=== PATIENT | female | born 1965 | race Caucasian/White ===

== ENCOUNTER → 2021-06-30 | Outpatient (CLI) | payer OTHER ==
[2021-06-30 14:17] LABS: HEMOGLOBIN 14.8 gm/dl (12.3-15.3); RED BLOOD COUNT 4.82 M/UL (4.00-5.10); WHITE BLOOD COUNT 6.9 K/UL (4.5-11.0)
[2021-06-30 14:46] LABS: BUN/CREATININE RATIO 13 (0-10)
== END ==
LOC: LAB 13:06
PROVIDERS: Orthopaedic Surgery
DX: Z01.812 Encounter for preprocedural laboratory examination (principal); M75.01 Adhesive capsulitis of right shoulder; M75.101 Unspecified rotator cuff tear or rupture of right shoulder, not specified as traumatic; I10 Essential (primary) hypertension
CPT/HCPCS: 36415; 80048; 85027

== ENCOUNTER 2021-07-03 14:32 | Emergency (ER) | payer OTHER ==
[2021-07-03 19:32] LABS: HEMOGLOBIN 14.2 gm/dl (12.3-15.3); RED BLOOD COUNT 4.89 M/UL (4.00-5.10); WHITE BLOOD COUNT 10.4 K/UL (4.5-11.0)
[2021-07-03 19:47] LABS: BUN/CREATININE RATIO 29 (0-10)
[2021-07-03] MEDS ORDERED: CEFUROXIME500 MG PO (22:50)
[2021-07-03] MEDS ORDERED: PYRIDIUM200 MG PO (22:50)
[2021-07-03] MEDS ORDERED: ONDANSETRON ODT4 MG SL (22:50)
== END 2021-07-03 23:35 | disposition home or self-care (01) ==
LOC: ER1 14:32
PROVIDERS: Physician Assistant
DX: N39.0 Urinary tract infection, site not specified (principal); R07.81 Pleurodynia; E11.9 Type 2 diabetes mellitus without complications; I10 Essential (primary) hypertension; Z90.49 Acquired absence of other specified parts of digestive tract
CPT/HCPCS: 71046; 80053; 81001; 83690; 85025; 90715; 96372; 96374; 96375; 99284; J1885; J2270; J2405; Q9967

== ENCOUNTER 2022-03-25 11:14 | Observation (INO) | payer OTHER ==
[~2022-03-25] VITALS: Ht 167.6 cm; Wt 108.9 kg
[~2022-03-25 11:14] MED LIST: CEFUROXIME500 MG PO; ONDANSETRON ODT4 MG SL; PYRIDIUM200 MG PO
[2022-03-25 12:51] LABS: HEMOGLOBIN 15.6 gm/dl (12.3-15.3); RED BLOOD COUNT 5.19 M/UL (4.00-5.10); WHITE BLOOD COUNT 8.7 K/UL (4.5-11.0)
[2022-03-25 13:37] LABS: BUN/CREATININE RATIO 24 (0-10)
[2022-03-25] MEDS ORDERED: LISINOPRIL40 MG PO (17:11)
[2022-03-25] MEDS ORDERED: TRAMADOL HCL50 MG PO (17:12)
[2022-03-25] MEDS ORDERED: NP THYROID60 MG PO (17:12)
[2022-03-25] MEDS ORDERED: JARDIANCE25 MG PO (17:12)
[2022-03-25] MEDS ORDERED: PROGESTERONE200 MG PO (17:12)
[2022-03-25] MEDS ORDERED: NEXLIZET 180-11 EACH PO (17:13)
[2022-03-25] MEDS ORDERED: VITAMIN D3125 MCG/0. PO (17:13)
[2022-03-25] MEDS ORDERED: PRILOSEC OTC20 MG PO (17:14)
[2022-03-25] MEDS ORDERED: CLARITIN10 MG PO (17:14)
[2022-03-26 02:37] LABS: HEMOGLOBIN 13.9 gm/dl (12.3-15.3); WHITE BLOOD COUNT 7.7 K/UL (4.5-11.0)
[2022-03-26 03:02] LABS: BUN/CREATININE RATIO 19 (0-10)
[2022-03-26 03:10] LABS: RED BLOOD COUNT 4.57 M/UL (4.00-5.10)
[2022-03-26] MEDS ORDERED: LOPRESSOR 25 MG25 MG PO (18:12)
[2022-03-26] MEDS ORDERED: NITROGLYCERIN0.4 MG SL (18:12)
[2022-03-26] MEDS ORDERED: LIPITOR40 MG PO (18:12)
[2022-03-26] MEDS ORDERED: ASPIRIN EC81 MG PO (18:12)
== END 2022-03-26 20:00 | disposition home or self-care (01) ==
LOC: ER1 11:14 → CDU 15:45 → M/S 18:26
PROVIDERS: Physician Assistant; ADMIT Internal Medicine
DX: R07.89 Other chest pain (principal); I16.9 Hypertensive crisis, unspecified; R00.2 Palpitations; R06.02 Shortness of breath; I10 Essential (primary) hypertension; E78.5 Hyperlipidemia, unspecified; E11.9 Type 2 diabetes mellitus without complications; K21.9 Gastro-esophageal reflux disease without esophagitis; E03.9 Hypothyroidism, unspecified; G89.29 Other chronic pain; M54.9 Dorsalgia, unspecified; K44.9 Diaphragmatic hernia without obstruction or gangrene; E66.9 Obesity, unspecified; Z68.38 Body mass index [BMI] 38.0-38.9, adult; Z79.84 Long term (current) use of oral hypoglycemic drugs; Z79.890 Hormone replacement therapy; Z79.899 Other long term (current) drug therapy
CPT/HCPCS: ECHO; 36415; 71045; 78452; 80053; 80061; 81001; 82550; 82553; 83605; 83735; 83880; 84439; 84443; 84484; 85025; 85379; 85610; 93005; 93017; 93306; 99285; A9502; G0378; J1650; J2785